=== PATIENT | male | born 1950 | race Caucasian/White ===

== ENCOUNTER 2019-08-10 14:19 | Emergency (ER) | payer MEDICARE ==
[~2019-08-10] VITALS: Ht 175.3 cm; Wt 97.5 kg
--- NOTE | 2019-08-10 14:30 | NUR ---
BORIS FROM [employer] C/O GLF +HEAD LAC, -KO. PATIENT A/OX4, BREATHING EVEN AND UNLABORED, NO SOB NOTED, NEEDS ATTENDED. KEPT PATIENT COMFORTABLE. ATTACHED TO THE MONITOR.
[2019-08-10] MEDS ORDERED: TDAP [DIPH/PERTUSSIS/TET] 0.5 ML VIAL IM ONE ×2 (14:49→15:00)
[2019-08-10] MEDS ORDERED: LIDOCAINE 1%-EPI 1:100,000 20 ML VIAL ONE (14:49)
[2019-08-10] MEDS ORDERED: LIDOCAINE 1%-EPI 1:100,000 20 ML VIAL TP ONE (15:00)
[2019-08-10 15:14] VITALS: BP 134/79
[2019-08-10] MEDS ORDERED: ACETAMINOPHEN ES 500 MG TABLET ONE (16:01)
--- NOTE | 2019-08-10 16:06 | NUR ---
PER PATIENT, HE'S NOT ALLERGIC TO ACETAMINOPHEN. DR. JOHNSON AT BEDSIDE, FOR WOUND CARE.
[2019-08-10] MEDS ORDERED: ACETAMINOPHEN ES 500 MG TABLET PO ONE (16:30)
--- NOTE | 2019-08-10 16:31 | NUR ---
SHAHEEN DONE BY DR. JOHNSON. PATIENT A/OX3, BREATHING EVEN AND UNLBAORED, NO DISTRESS NOTED. Patient discharged to home in stable condition. Written and verbal after care instructions given. Patient verbalizes understanding of instruction. Patient waiting for friends to pick him up.
--- NOTE | 2019-08-10 16:44 | NUR ---
CALLED JESSIE (FRIEND) FOR [employer]. [phone].
== END 2019-08-10 17:08 | disposition home or self-care (01) ==
LOC: ER 14:23
DX: S01.01XA Laceration without foreign body of scalp, initial encounter (principal); S16.1XXA Strain of muscle, fascia and tendon at neck level, initial encounter; R51 Headache; I10 Essential (primary) hypertension; E11.9 Type 2 diabetes mellitus without complications; K58.9 Irritable bowel syndrome, unspecified; F10.10 Alcohol abuse, uncomplicated; Y90.9 Presence of alcohol in blood, level not specified; Z98.890 Other specified postprocedural states; Z60.2 Problems related to living alone; Z90.49 Acquired absence of other specified parts of digestive tract; Z90.89 Acquired absence of other organs; Z88.5 Allergy status to narcotic agent; Z95.1 Presence of aortocoronary bypass graft; W01.0XXA Fall on same level from slipping, tripping and stumbling without subsequent striking against object, initial encounter; Y93.89 Activity, other specified; Y92.89 Other specified places as the place of occurrence of the external cause; Y99.8 Other external cause status
CPT/HCPCS: 12004; 70450; 70486; 72125; 90471; 90715; 99284; A6403; J3490